=== PATIENT | female | born 1955 | race Caucasian/White ===

== ENCOUNTER 2024-03-03 13:53 | Emergency (ER) | payer MEDICAID, OTHER ==
[~2024-03-03] VITALS: Ht 157.5 cm; Wt 72.7 kg
[~2024-03-03 13:53] MED LIST: DIVA500T69 PO; FLUT1DIS3 IH; LEVO150 PO; LISI5TAB21 PO; LITH300C3 PO; OLAN10TA74 PO; OXYB10TA4 PO; PARO-38 PO; SIMV-46 PO
[2024-03-03 15:25] VITALS: BP 151/77; PULSE 80; RESP 18; TEMP 98.9; O2SAT 97
== END 2024-03-03 17:02 | disposition left against medical advice (07) ==
LOC: EMS 14:07
DX: F31.9 Bipolar disorder, unspecified (principal); Z79.899 Other long term (current) drug therapy; J44.9 Chronic obstructive pulmonary disease, unspecified; E78.00 Pure hypercholesterolemia, unspecified; I10 Essential (primary) hypertension; F17.210 Nicotine dependence, cigarettes, uncomplicated; R46.89 Other symptoms and signs involving appearance and behavior; Z79.51 Long term (current) use of inhaled steroids; Z88.5 Allergy status to narcotic agent; Z91.148 Patient's other noncompliance with medication regimen for other reason; Z88.0 Allergy status to penicillin
CPT/HCPCS: 99283; Z7502

== ENCOUNTER 2024-11-18 17:55 | Inpatient (IN) | payer MEDICAID, OTHER ==
[~2024-11-18] VITALS: Ht 167.6 cm; Wt 52.2 kg
[~2024-11-18 17:55] MED LIST changes: +CHOL25TA4 PO; +DIVA-112 PO; -DIVA500T69 PO; -FLUT1DIS3 IH; -LEVO150 PO; +LEVO75 PO; -LITH300C3 PO; +MULT-264 PO; -OLAN10TA74 PO; -OXYB10TA4 PO; +OXYB10TA42 PO; +PALI234D IM; -PARO-38 PO
[2024-11-18 21:53] LABS: EOSINOPHILS % (AUTO) 0 % (1.0-6.0); HEMOGLOBIN 10.9 g/dL (12.0-16.0); LYMPHOCYTES # (AUTO) 0.8 K/uL (1.0-4.8); LYMPHOCYTES % (AUTO) 2.9 % (22.0-44.0); MEAN CORPUSCULAR HEMOGLOBIN 32.6 pg (26.0-34.0); MEAN CORPUSCULAR VOLUME 99 fL (80-100); MONOCYTES # (AUTO) 2.9 K/uL (0.1-1.0); MONOCYTES % (AUTO) 10.6 % (2.0-9.0); NEUTROPHILS # (AUTO) 23.3 K/uL (1.8-7.7); PLATELET COUNT (AUTO) 329 K/uL (150-450); RED BLOOD CELL COUNT(AUTO) 3.33 MIL/uL (4.00-5.20); RED CELL DISTRIBUTION WIDTH 14.3 % (11.5-14.5)
[2024-11-18 21:54] LABS: NEUTROPHILS % (AUTO) 86.5 % (40.0-70.0)
[2024-11-18 22:03] LABS: ANION GAP 11 mmol/L (8-16); CALCIUM, TOTAL 8.9 mg/dL (8.8-10.5); CARBON DIOXIDE 24 mmol/L (22-29); CHLORIDE 102 mmol/L (98-107); CREATININE 1.27 mg/dL (0.60-1.30); GLOMERULAR FILTR. RATE CALC 42 mL/min (>60); GLUCOSE,RANDOM 103 mg/dL (70-110); POTASSIUM 3.9 mmol/L (3.5-5.1); SODIUM SERUM 137 mmol/L (136-145); UREA NITROGEN, BLOOD 21 mg/dL (7-18)
[2024-11-18 22:08] LABS: TROPONIN I-HIGH SENSITIVITY 26 ng/L (<51)
[2024-11-18 22:09] LABS: PLATELET MORPHOLOGY COMMENT LARGE PLTS PRESENT; RBC MORPHOLOGY COMMENT NORMAL RBC MORPH
[2024-11-18 22:11] LABS: LACTIC ACID 1.1 mmol/L (0.4-2.0)
[2024-11-18 22:17] LABS: B-TYPE NATRIURETIC PEPTIDE 116 pg/mL (0-100)
[2024-11-18] MEDS: SODIUM CHLORIDE 0.9% 500 ML IV ONE (22:30)
[2024-11-18 22:41] LABS: ALANINE AMINOTRANSFERASE 9 U/L (12-78); ALBUMIN 2.4 g/dL (3.4-5.0); ALKALINE PHOSPHATASE 80 U/L (46-116); ASPARTATE AMINOTRANSFERASE 17 U/L (15-37); BILIRUBIN,TOTAL 0.5 mg/dL (0.1-1.0)
[2024-11-18] MEDS: CefTRIAXone 1 GM/DEXTROSE 50 ML IV ONE (22:47)
[2024-11-18] MEDS ORDERED: ALBUTEROL SULFATE 2.5 MG/0.5 ML NEB SOLUTION NEB PRN (23:45)
[2024-11-18] MEDS ORDERED: ONDANSETRON HCL 4 MG/2 ML VIAL IVP PRN (23:45)
[2024-11-18] MEDS ORDERED: IPRATROPIUM BROMIDE 0.5 MG/2.5 ML NEB SOLUTION NEB PRN (23:45)
[2024-11-18] MEDS: *CLINICAL-CEFEPIME DOSING CLINICAL ONE (23:52)
[2024-11-19] MEDS ORDERED: IOHEXOL 350 MG/ML 100 ML VIAL ONE (01:36)
[2024-11-19] MEDS ORDERED: SODIUM CHLORIDE 0.9% 100 ML ONE (01:36)
[2024-11-19] MEDS: VANCOMYCIN 1.25 GM/WATER(PEG) 250 ML IV ONE (02:41)
[2024-11-19] MEDS: SODIUM CHLORIDE 0.9% 1,000 ML IV ONE (02:42)
[2024-11-19] MEDS: HEPARIN SODIUM,PORCINE 5,000 UNITS/ML VIAL SQ SCH (02:42)
[2024-11-19] MEDS: CEFEPIME HCL 1 GM in DEXTROSE 5%-WATER 50 ML IV SCH (05:43)
[2024-11-19] MEDS: LEVOTHYROXINE SODIUM 75 MCG TABLET PO SCH (06:20)
[2024-11-19] MEDS: haloperidoL LACTATE 5 MG/ML VIAL IM ONE (06:31)
[2024-11-19 06:53] LABS: COVID AG,FIA SOURCE NASAL SWAB
[2024-11-19 07:33] LABS: SARS-COV2 (COVID) ANTIGEN,FIA Negative (Negative)
[2024-11-19 07:35] LABS: INFLUENZA TYPE A NEGATIVE FOR TYPE A (NEGATIVE); INFLUENZA TYPE B NEGATIVE FOR TYPE B (NEGATIVE)
[2024-11-19 07:54] LABS: BASOPHILS % (AUTO) 0.1 % (0.0-2.0); EOSINOPHILS % (AUTO) 0 % (1.0-6.0); HEMATOCRIT 30.7 % (36-46); LYMPHOCYTES # (AUTO) 0.7 K/uL (1.0-4.8); LYMPHOCYTES % (AUTO) 3.4 % (22.0-44.0); MEAN CORPUSCULAR HEMOGLOBIN 32.3 pg (26.0-34.0); MEAN CORPUSCULAR HGB CONC 32.5 G/dL (31.0-37.0); MEAN CORPUSCULAR VOLUME 100 fL (80-100); MONOCYTES # (AUTO) 2.3 K/uL (0.1-1.0); MONOCYTES % (AUTO) 10.2 % (2.0-9.0); NEUTROPHILS # (AUTO) 19.2 K/uL (1.8-7.7); PLATELET COUNT (AUTO) 268 K/uL (150-450); RED BLOOD CELL COUNT(AUTO) 3.08 MIL/uL (4.00-5.20); WHITE BLOOD COUNT (AUTO) 22.2 K/uL (4.5-11.0)
[2024-11-19 07:57] LABS: NEUTROPHILS % (AUTO) 86.3 % (40.0-70.0)
[2024-11-19 08:06] LABS: CALCIUM, TOTAL 8.4 mg/dL (8.8-10.5); CREATININE 1.11 mg/dL (0.60-1.30)
[2024-11-19] MEDS: MULTIVITAMINS, THERAPEUTIC TABLET PO SCH (08:15)
[2024-11-19] MEDS: DOCUSATE SODIUM 100 MG CAPSULE PO SCH (08:15)
[2024-11-19] MEDS: CHOLECALCIFEROL (VIT D3) 1,000 UNITS [25 MCG] TABLET PO SCH (09:00)
[2024-11-19] MEDS: DIVALPROEX SODIUM 500 MG DR TABLET PO SCH (09:43)
[2024-11-19] MEDS: ENOXAPARIN SODIUM 80 MG/0.8 ML PF SYRINGE SQ SCH (09:43)
[2024-11-19] MEDS: ACETAMINOPHEN 325 MG TABLET PO PRN (13:52)
[2024-11-19 15:56] VITALS: BP 110/60; PULSE 103; RESP 18; TEMP 99; O2SAT 96
[2024-11-19] MEDS ORDERED: SODIUM CHLORIDE 0.9% 500 ML IV ONE (16:52)
[2024-11-19] MEDS: CEFEPIME HCL 2 GM in DEXTROSE 5%-WATER 50 ML IV SCH (17:23)
[2024-11-19] MEDS ORDERED: LORazepam 2 MG/ML VIAL IVP PRN (19:45)
[2024-11-19 20:31] VITALS: BP 121/75; PULSE 93; RESP 19; TEMP 98.4; O2SAT 96
[2024-11-19] MEDS: VANCOMYCIN 750 MG/WATER(PEG) 150 ML IV SCH (21:29)
[2024-11-19] MEDS: SIMVASTATIN 40 MG TABLET PO SCH (21:31)
[2024-11-20] VITALS: BP 124/68; PULSE 96; RESP 19; TEMP 98.1; O2SAT 96
[2024-11-20 04:00] VITALS: BP 131/63; PULSE 97; RESP 19; TEMP 97.7; O2SAT 97
[2024-11-20 07:01] LABS: CALCIUM, TOTAL 8.7 mg/dL (8.8-10.5); CREATININE 1.09 mg/dL (0.60-1.30); POTASSIUM 4.3 mmol/L (3.5-5.1)
[2024-11-20] MEDS ORDERED: VANCOMYCIN 1.25 GM/WATER(PEG) 250 ML IV SCH (08:00)
[2024-11-20 08:35] VITALS: BP 126/64; PULSE 86; RESP 19; TEMP 97.7; O2SAT 97
[2024-11-20 11:58] VITALS: BP 117/71; PULSE 83; RESP 19; TEMP 97.7; O2SAT 100
[2024-11-20 18:18] VITALS: BP 117/58; PULSE 87; RESP 19; TEMP 97.7; O2SAT 99
[2024-11-20 20:38] VITALS: BP 141/72; PULSE 81; RESP 18; TEMP 98.1; O2SAT 98
[2024-11-20 23:05] LABS: APPEARANCE,URINE HAZY (CLEAR); BILIRUBIN,URINE NEGATIVE (NEGATIVE); COLOR,URINE YELLOW (YELLOW); GLUCOSE, URINE (UA) NEGATIVE (NEGATIVE); LEUKOCYTE ESTERASE ,URINE LARGE (NEGATIVE); NITRATE,URINE NEGATIVE (NEGATIVE); OCCULT BLOOD,URINE SMALL (NEGATIVE); PROTEIN,URINE 30-70 mg/dL (NEGATIVE); SPECIFIC GRAVITIY, URINE 1.018 (1.003-1.030); UROBILINOGEN,URINE <=1.0 mg/dL (<=1.0)
[2024-11-20 23:19] LABS: WBC,URINE 26-50 /HPF (0-5)
[2024-11-20 23:20] LABS: BACTERIA,URINE Few /HPF (None Seen); SQUAMOUS EPITHELIAL CELL,UR Rare /LPF (None Seen)
[2024-11-21] VITALS (7 sets, daily range): BP systolic 110–149; BP diastolic 56–88; PULSE 83–88; RESP 16–19; TEMP 97.4–98.9; O2SAT 95–98
[2024-11-21 07:02] LABS: ANION GAP 10 mmol/L (8-16); CALCIUM, TOTAL 8.8 mg/dL (8.8-10.5); CARBON DIOXIDE 22 mmol/L (22-29); CHLORIDE 108 mmol/L (98-107); CREATININE 0.92 mg/dL (0.60-1.30); GLOMERULAR FILTR. RATE CALC > 60 mL/min (>60); GLUCOSE,RANDOM 87 mg/dL (70-110); POTASSIUM 3.6 mmol/L (3.5-5.1); SODIUM SERUM 140 mmol/L (136-145); UREA NITROGEN, BLOOD 20 mg/dL (7-18)
[2024-11-21] MEDS: VALPROIC ACID 250 MG/5 ML SOLUTION UDCUP PO SCH (21:36)
[2024-11-22 03:52] VITALS: BP 137/69; PULSE 81; RESP 18; TEMP 98.2; O2SAT 98
[2024-11-22] MEDS: CEFEPIME HCL 2 GM in DEXTROSE 5%-WATER 50 ML IV SCH (05:56)
[2024-11-22] MEDS: MULTIVITAMINS WITH MINERALS, THERAPEUTIC TABLET PO SCH (09:13)
[2024-11-22] MEDS: VANCOMYCIN 750 MG/WATER(PEG) 150 ML IV SCH (09:15)
[2024-11-22 11:38] LABS: BASOPHILS % (AUTO) 0.1 % (0.0-2.0); EOSINOPHILS % (AUTO) 0.1 % (1.0-6.0); HEMATOCRIT 31.1 % (36-46); HEMOGLOBIN 10.3 g/dL (12.0-16.0); LYMPHOCYTES # (AUTO) 1.3 K/uL (1.0-4.8); LYMPHOCYTES % (AUTO) 12.8 % (22.0-44.0); MEAN CORPUSCULAR HEMOGLOBIN 32.6 pg (26.0-34.0); MEAN CORPUSCULAR HGB CONC 32.9 G/dL (31.0-37.0); MEAN CORPUSCULAR VOLUME 99 fL (80-100); MONOCYTES # (AUTO) 0.9 K/uL (0.1-1.0); MONOCYTES % (AUTO) 9.1 % (2.0-9.0); NEUTROPHILS # (AUTO) 7.8 K/uL (1.8-7.7); NEUTROPHILS % (AUTO) 77.9 % (40.0-70.0); PLATELET COUNT (AUTO) 299 K/uL (150-450); RED BLOOD CELL COUNT(AUTO) 3.15 MIL/uL (4.00-5.20); RED CELL DISTRIBUTION WIDTH 14.3 % (11.5-14.5)
[2024-11-22 11:48] LABS: CALCIUM, TOTAL 8.8 mg/dL (8.8-10.5); CREATININE 0.96 mg/dL (0.60-1.30); POTASSIUM 3.6 mmol/L (3.5-5.1)
[2024-11-22 12:00] VITALS: BP 132/72; PULSE 82; TEMP 97.2
[2024-11-22 19:40] VITALS: BP 123/66; PULSE 86; RESP 18; TEMP 98.4; O2SAT 95
[2024-11-23 03:55] VITALS: BP 125/67; PULSE 85; RESP 18; TEMP 97.9; O2SAT 97
[2024-11-23 16:16] VITALS: BP 136/78; PULSE 88; RESP 20; O2SAT 97
[2024-11-23 19:37] VITALS: BP 137/74; PULSE 79; RESP 18; TEMP 99; O2SAT 96
[2024-11-23] MEDS: HEPARIN SODIUM,PORCINE 5,000 UNITS/ML VIAL SQ SCH (21:39)
[2024-11-24 05:02] VITALS: BP 145/78; PULSE 86; RESP 18; O2SAT 95
== END 2024-11-24 10:45 | DRG 720 ==
LOC: EMS 17:55 → EDH 23:36 → 5S 11-19 14:05 → 6S 11-21 17:58
PROVIDERS: ADMIT Internal Medicine; ATTEND Internal Medicine
DX: A41.9 Sepsis, unspecified organism (principal); J96.01 Acute respiratory failure with hypoxia; G92.9 Unspecified toxic encephalopathy; E44.0 Moderate protein-calorie malnutrition; R64 Cachexia; Z20.822 Contact with and (suspected) exposure to COVID-19; J44.89 Other specified chronic obstructive pulmonary disease; N39.0 Urinary tract infection, site not specified; F03.90 Unspecified dementia, unspecified severity, without behavioral disturbance, psychotic disturbance, mood disturbance, and anxiety; E78.00 Pure hypercholesterolemia, unspecified; D64.9 Anemia, unspecified; F17.210 Nicotine dependence, cigarettes, uncomplicated; E03.9 Hypothyroidism, unspecified; F31.9 Bipolar disorder, unspecified; I10 Essential (primary) hypertension; Z68.1 Body mass index [BMI] 19.9 or less, adult; Z82.49 Family history of ischemic heart disease and other diseases of the circulatory system; Z74.01 Bed confinement status; Z88.0 Allergy status to penicillin; Z88.5 Allergy status to narcotic agent; Z91.199 Patient's noncompliance with other medical treatment and regimen due to unspecified reason; Z79.899 Other long term (current) drug therapy
CPT/HCPCS: 71045; 80048; 80076; 80202; 81001; 83605; 83735; 83880; 84145; 84484; 85025; 85379; 87040; 87086; 87804; 92610; 93005; 96365; 99285; G0378; J0692; J0696; J1630; J1644; J1650; J7040; J7050; J7060; 36415-L1; 36415-TC

== ENCOUNTER 2024-12-28 17:01 | Emergency (ER) | payer OTHER ==
[~2024-12-28] VITALS: Ht 157.5 cm; Wt 55.5 kg
[2024-12-28 17:11] VITALS: TEMP 97.9
[2024-12-28] MEDS: LORazepam 2 MG/ML VIAL IM ONE (17:21)
[2024-12-28] MEDS ORDERED: LITH300C3 PO (17:24)
[2024-12-28] MEDS ORDERED: LEVO50TA11 PO (17:24)
[2024-12-28] MEDS ORDERED: ZOLPIDEM TARTRATE 10 MG TABLET PO PRN (17:45)
[2024-12-28 18:12] LABS: COVID AG,FIA SOURCE NASAL SWAB
[2024-12-28 18:14] LABS: APPEARANCE,URINE TURBID (CLEAR); GLUCOSE, URINE (UA) NEGATIVE (NEGATIVE); LEUKOCYTE ESTERASE ,URINE LARGE (NEGATIVE); NITRATE,URINE POSITIVE (NEGATIVE); OCCULT BLOOD,URINE SMALL (NEGATIVE); PH,URINE DRUG SCREEN 6.0 (5.0-8.0); SPECIFIC GRAVITIY, URINE 1.009 (1.003-1.030)
[2024-12-28 18:21] LABS: ALCOHOL, URINE DRUG SCREEN NEGATIVE (NEGATIVE); AMPHET/METH SCREEN,URINE NEGATIVE (NEGATIVE); BARBITURATE SCREEN, URINE NEGATIVE (NEGATIVE); CANNABINOID SCREEN,URINE NEGATIVE (NEGATIVE); COCAINE SCREEN,URINE NEGATIVE (NEGATIVE); METHADONE SCREEN, URINE NEGATIVE (NEGATIVE)
[2024-12-28 18:30] LABS: SARS-COV2 (COVID) ANTIGEN,FIA Negative (Negative)
[2024-12-28 18:43] LABS: SQUAMOUS EPITHELIAL CELL,UR Rare /LPF (None Seen)
[2024-12-28 20:26] LABS: PLATELET COUNT (AUTO) 247 K/uL (150-450); RED BLOOD CELL COUNT(AUTO) 3.00 MIL/uL (4.00-5.20); RED CELL DISTRIBUTION WIDTH 15.6 % (11.5-14.5); WHITE BLOOD COUNT (AUTO) 7.4 K/uL (4.5-11.0)
[2024-12-28 20:36] LABS: CALCIUM, TOTAL 8.1 mg/dL (8.8-10.5); CREATININE 1.2 mg/dL (0.60-1.30); GLOMERULAR FILTR. RATE CALC 45.0 mL/min (>60); GLUCOSE,RANDOM 96.0 mg/dL (70-110); SODIUM SERUM 143.0 mmol/L (136-145); UREA NITROGEN, BLOOD 18.0 mg/dL (7-18)
[2024-12-28] MEDS: CEPHALEXIN MONOHYDRATE 500 MG CAPSULE PO ONE (23:49)
[2024-12-29 10:16] LABS: CHOL/HDL RATIO 4.8 (3.9-5.7); LDL CHOL (CALC.) 125.0 mg/dL (0-130)
[2024-12-30] MEDS ORDERED: LEVO750T68 PO (15:10)
[2024-12-30 15:30] VITALS: BP 129/87; PULSE 91; RESP 18; O2SAT 98
[2024-12-31] MEDS ORDERED: GENT80I IM (14:41)
== END 2024-12-30 16:23 | disposition home or self-care (01) ==
LOC: EMS 17:01 → CANBEDREQ 01-05 15:29
DX: F20.9 Schizophrenia, unspecified (principal); N39.0 Urinary tract infection, site not specified; F31.9 Bipolar disorder, unspecified; J44.89 Other specified chronic obstructive pulmonary disease; E03.9 Hypothyroidism, unspecified; E78.00 Pure hypercholesterolemia, unspecified; I10 Essential (primary) hypertension; F17.210 Nicotine dependence, cigarettes, uncomplicated; Z88.5 Allergy status to narcotic agent; Z88.0 Allergy status to penicillin; Z79.899 Other long term (current) drug therapy; Z20.822 Contact with and (suspected) exposure to COVID-19; Z91.011 Allergy to milk products
CPT/HCPCS: 99285; 87426; 80061; 80048; 81001; 83036; 85025; 87077; 87086; 87186; 36415; 96372; 80307; G0480; J1200; J1630; J2060

== ENCOUNTER 2025-01-11 14:47 | Emergency (ER) | payer OTHER ==
[~2025-01-11] VITALS: Ht 157.5 cm; Wt 65.0 kg
[~2025-01-11 14:47] MED LIST changes: +GENT80I IM; +LEVO50TA11 PO; -LEVO75 PO; +LEVO750T68 PO; +LITH300C3 PO
[2025-01-11 14:55] VITALS: TEMP 97.3
[2025-01-11] MEDS ORDERED: LEVO88TA7 PO (15:39)
[2025-01-11] MEDS: LORazepam 2 MG/ML VIAL IM ONE (15:53)
[2025-01-11 18:24] VITALS: BP 131/70; PULSE 82; RESP 18; O2SAT 95
== END 2025-01-11 18:39 ==
LOC: EMS 14:47
DX: R45.1 Restlessness and agitation (principal); J44.89 Other specified chronic obstructive pulmonary disease; F31.9 Bipolar disorder, unspecified; E03.9 Hypothyroidism, unspecified; E78.00 Pure hypercholesterolemia, unspecified; F20.9 Schizophrenia, unspecified; I10 Essential (primary) hypertension; F17.210 Nicotine dependence, cigarettes, uncomplicated; Z88.5 Allergy status to narcotic agent; Z79.899 Other long term (current) drug therapy
CPT/HCPCS: 99284; 96372; J1200; J1630; J2060

== ENCOUNTER 2025-03-29 10:54 | Inpatient (IN) | payer OTHER ==
[~2025-03-29] VITALS: Ht 157.5 cm; Wt 54.5 kg
[~2025-03-29 10:54] MED LIST changes: -GENT80I IM; -LEVO50TA11 PO; -LEVO750T68 PO; +LEVO88TA7 PO
[2025-03-29 11:15] LABS: PLATELET COUNT (AUTO) 231 K/uL (150-450); RED BLOOD CELL COUNT(AUTO) 3.52 MIL/uL (4.00-5.20); RED CELL DISTRIBUTION WIDTH 14.7 % (11.5-14.5); WHITE BLOOD COUNT (AUTO) 6.7 K/uL (4.5-11.0)
[2025-03-29 11:23] LABS: CALCIUM, TOTAL 8.5 mg/dL (8.8-10.5); CREATININE 0.91 mg/dL (0.60-1.30); GLOMERULAR FILTR. RATE CALC > 60 mL/min (>60); GLUCOSE,RANDOM 116 mg/dL (70-110); SODIUM SERUM 140 mmol/L (136-145); UREA NITROGEN, BLOOD 24 mg/dL (7-18)
[2025-03-29] MEDS ORDERED: ZOLPIDEM TARTRATE 10 MG TABLET PO PRN (11:30)
[2025-03-29] MEDS: LORazepam 2 MG/ML VIAL IM ONE (11:39)
[2025-03-29 12:12] LABS: COVID AG,FIA SOURCE NASAL SWAB
[2025-03-29 12:17] LABS: APPEARANCE,URINE HAZY (CLEAR); GLUCOSE, URINE (UA) NEGATIVE (NEGATIVE); LEUKOCYTE ESTERASE ,URINE LARGE (NEGATIVE); NITRATE,URINE POSITIVE (NEGATIVE); OCCULT BLOOD,URINE TRACE (NEGATIVE); PH,URINE DRUG SCREEN 6.0 (5.0-8.0); SPECIFIC GRAVITIY, URINE 1.012 (1.003-1.030)
[2025-03-29 12:21] LABS: SQUAMOUS EPITHELIAL CELL,UR Rare /LPF (None Seen)
[2025-03-29 12:24] LABS: AMPHET/METH SCREEN,URINE NEGATIVE (NEGATIVE); BARBITURATE SCREEN, URINE NEGATIVE (NEGATIVE); CANNABINOID SCREEN,URINE NEGATIVE (NEGATIVE); COCAINE SCREEN,URINE NEGATIVE (NEGATIVE); METHADONE SCREEN, URINE NEGATIVE (NEGATIVE)
[2025-03-29 12:25] LABS: ALCOHOL, URINE DRUG SCREEN NEGATIVE (NEGATIVE)
[2025-03-29 12:32] LABS: SARS-COV2 (COVID) ANTIGEN,FIA Negative (Negative)
[2025-03-29] MEDS: *CLINICAL-GENTAMICIN DOSING CLINICAL ONE (14:55)
[2025-03-29] MEDS: GENTAMICIN 100 MG/NACL ISO-OSM 50 ML IV ONE (15:46)
[2025-03-29 19:41] VITALS: BP 140/61; PULSE 62; RESP 19; TEMP 97.5; O2SAT 99
[2025-03-29] MEDS: DIVALPROEX SODIUM 500 MG DR TABLET PO SCH (21:00)
[2025-03-29] MEDS: LITHIUM CARBONATE 300 MG CAPSULE PO SCH (21:00)
[2025-03-29] MEDS: SIMVASTATIN 40 MG TABLET PO SCH (21:00)
[2025-03-30] MEDS: LEVOTHYROXINE SODIUM 88 MCG TABLET PO SCH (05:46)
[2025-03-30 06:48] VITALS: BP 119/70; PULSE 71; RESP 18; TEMP 98.1; O2SAT 98
[2025-03-30 07:42] LABS: PLATELET COUNT (AUTO) 211 K/uL (150-450); RED BLOOD CELL COUNT(AUTO) 3.44 MIL/uL (4.00-5.20); RED CELL DISTRIBUTION WIDTH 14.3 % (11.5-14.5); WHITE BLOOD COUNT (AUTO) 6.9 K/uL (4.5-11.0)
[2025-03-30 07:48] LABS: CALCIUM, TOTAL 8.1 mg/dL (8.8-10.5); CREATININE 1.08 mg/dL (0.60-1.30); GLOMERULAR FILTR. RATE CALC 51.0 mL/min (>60); GLUCOSE,RANDOM 165.0 mg/dL (70-110); SODIUM SERUM 140.0 mmol/L (136-145); UREA NITROGEN, BLOOD 28.0 mg/dL (7-18)
[2025-03-30] MEDS: GENTAMICIN 60 MG/NACL ISO-OSM 50 ML IV SCH (08:00)
[2025-03-30] MEDS: CHOLECALCIFEROL (VIT D3) 1,000 UNITS [25 MCG] TABLET PO SCH (09:12)
[2025-03-30] MEDS: OXYBUTYNIN CHLORIDE 5 MG ER TABLET PO SCH (09:13)
[2025-03-30] MEDS ORDERED: SODIUM CHLORIDE 0.9% 250 ML IV ONE (16:38)
[2025-03-30 20:00] VITALS: BP 107/62; PULSE 75; RESP 18; TEMP 97.3; O2SAT 95
[2025-03-31 08:34] LABS: PLATELET COUNT (AUTO) 197 K/uL (150-450); RED BLOOD CELL COUNT(AUTO) 3.31 MIL/uL (4.00-5.20); RED CELL DISTRIBUTION WIDTH 14.4 % (11.5-14.5); WHITE BLOOD COUNT (AUTO) 6.7 K/uL (4.5-11.0)
[2025-03-31 08:42] LABS: CALCIUM, TOTAL 8.1 mg/dL (8.8-10.5); CREATININE 1.23 mg/dL (0.60-1.30); GLOMERULAR FILTR. RATE CALC 44.0 mL/min (>60); GLUCOSE,RANDOM 122.0 mg/dL (70-110); SODIUM SERUM 139.0 mmol/L (136-145); UREA NITROGEN, BLOOD 29.0 mg/dL (7-18)
[2025-03-31 16:00] VITALS: BP 110/63; PULSE 63; RESP 18; TEMP 97.6; O2SAT 98
[2025-03-31 20:26] VITALS: BP 124/64; PULSE 82; RESP 18; TEMP 98.1; O2SAT 98
[2025-04-01 06:00] VITALS: BP 137/54; PULSE 61; RESP 18; TEMP 97.7; O2SAT 97
[2025-04-01] MEDS ORDERED: ZOLPIDEM TARTRATE 5 MG TABLET PO PRN (12:00)
[2025-04-01] MEDS ORDERED: ALBUTEROL SULFATE 2.5 MG/0.5 ML NEB SOLUTION NEB PRN (12:00)
[2025-04-01] MEDS ORDERED: BISACODYL 10 MG RECTAL RECTAL SUPPOSITORY PR PRN (12:00)
[2025-04-01] MEDS ORDERED: ACETAMINOPHEN 325 MG TABLET PO PRN (12:00)
[2025-04-01] MEDS ORDERED: MAGNESIUM HYDROXIDE SUSPENSION 30 ML UDCUP PO PRN (12:00)
[2025-04-01] MEDS ORDERED: *CLINICAL-MEROPENEM DOSING CLINICAL ONE (12:00)
[2025-04-01] MEDS ORDERED: ONDANSETRON HCL 4 MG/2 ML VIAL IVP PRN (12:00)
[2025-04-01] MEDS ORDERED: IPRATROPIUM BROMIDE 0.5 MG/2.5 ML NEB SOLUTION NEB PRN (12:00)
[2025-04-01] MEDS ORDERED: ACET650S14 PR (12:51)
[2025-04-01] MEDS ORDERED: ACET-2247 PO (12:52)
[2025-04-01] MEDS ORDERED: MAGN-169 PO (12:52)
[2025-04-01] MEDS: HEPARIN SODIUM,PORCINE 5,000 UNITS/ML VIAL SQ SCH (15:57)
[2025-04-02] MEDS ORDERED: PANTOPRAZOLE SODIUM 40 MG/VIAL IVP SCH (09:00)
== END 2025-04-01 18:15 | DRG 463 ==
LOC: EMS 10:54 → EDBEDREQSVC 12:51 → EDBEDREQ 12:51 → EDH 12:56 → 6S 16:01
PROVIDERS: ADMIT Internal Medicine; ATTEND Internal Medicine
DX: N39.0 Urinary tract infection, site not specified (principal); F25.0 Schizoaffective disorder, bipolar type; B96.1 Klebsiella pneumoniae [K. pneumoniae] as the cause of diseases classified elsewhere; F03.93 Unspecified dementia, unspecified severity, with mood disturbance; Z20.822 Contact with and (suspected) exposure to COVID-19; I10 Essential (primary) hypertension; N39.41 Urge incontinence; E03.9 Hypothyroidism, unspecified; E78.00 Pure hypercholesterolemia, unspecified; F32.9 Major depressive disorder, single episode, unspecified; J44.89 Other specified chronic obstructive pulmonary disease; Z16.24 Resistance to multiple antibiotics; Z16.12 Extended spectrum beta lactamase (ESBL) resistance; Z88.0 Allergy status to penicillin; Z88.5 Allergy status to narcotic agent; Z87.891 Personal history of nicotine dependence; Z91.199 Patient's noncompliance with other medical treatment and regimen due to unspecified reason; Z79.899 Other long term (current) drug therapy; Z87.440 Personal history of urinary (tract) infections
CPT/HCPCS: 51701; 80048; 80170; 80307; 81001; 85025; 87077; 87086; 87185; 87186; 96365; 96372; 99291; G0480; J1200; J1580; J1630; J2060; J7050